=== PATIENT | female | born 1960 | race African-American/Black ===

== ENCOUNTER 2017-02-02 17:34 | Emergency (ER) | payer MEDICAID ==
[~2017-02-02] VITALS: Ht 170.2 cm; Wt 72.7 kg
[2017-02-02] MEDS ORDERED: METF500T4 PO (18:05)
[2017-02-02] MEDS ORDERED: LOSA50TA37 PO (18:05)
[2017-02-02] MEDS ORDERED: ZOLP5 PO (18:05)
[2017-02-02 18:07] LABS: GLUCOSE,POINT OF CARE 86 MG/DL (70-110)
[2017-02-02] MEDS ORDERED: HYDROCODONE/ACETAMINOPHEN 5-325 MG TABLET PO ONE (20:00)
[2017-02-02 21:25] VITALS: BP 132/89
== END 2017-02-02 22:10 | disposition home or self-care (01) ==
LOC: EMS 17:39
DX: M25.571 Pain in right ankle and joints of right foot (principal); M25.471 Effusion, right ankle; J45.909 Unspecified asthma, uncomplicated; E11.9 Type 2 diabetes mellitus without complications; I10 Essential (primary) hypertension; M19.90 Unspecified osteoarthritis, unspecified site
CPT/HCPCS: 29505; 82962; 99284

== ENCOUNTER 2017-04-20 05:54 | Emergency (ER) | payer MEDICAID ==
[~2017-04-20] VITALS: Ht 152.4 cm; Wt 95.5 kg
[~2017-04-20 05:54] MED LIST: LOSA50TA37 PO; METF500T4 PO; ZOLP5 PO
[2017-04-20] MEDS ORDERED: CLON.5 PO (06:00)
[2017-04-20] MEDS ORDERED: FOLI1 PO (06:00)
[2017-04-20 06:07] LABS: GLUCOSE,POINT OF CARE 127 MG/DL (70-110)
[2017-04-20 07:48] LABS: INFLUENZA TYPE B NEGATIVE FOR TYPE B (NEGATIVE)
[2017-04-20] MEDS ORDERED: BENZONATATE 100 MG CAPSULE PO ONE (09:00)
[2017-04-20] MEDS: IBUPROFEN 800 MG TABLET PO ONE ×2 (09:03→09:06)
[2017-04-20] MEDS ORDERED: ACETAMINOPHEN 500 MG TABLET PO ONE (09:15)
[2017-04-20] MEDS ORDERED: CIPROFLOXACIN HCL 0.2%/HYDROCORT 1% 10 ML OTIC SUSPENSION AD ONE (10:00)
[2017-04-20 10:15] VITALS: BP 105/67
== END 2017-04-20 10:27 | disposition home or self-care (01) ==
LOC: EMS 05:55
DX: J40 Bronchitis, not specified as acute or chronic (principal); R50.9 Fever, unspecified; J45.909 Unspecified asthma, uncomplicated; E11.9 Type 2 diabetes mellitus without complications; I10 Essential (primary) hypertension
CPT/HCPCS: 71020; 82962; 87804; 99285

== ENCOUNTER 2018-06-20 10:01 | Emergency (ER) | payer MEDICAID ==
[~2018-06-20] VITALS: Ht 157.5 cm; Wt 105.0 kg
[~2018-06-20 10:01] MED LIST changes: +CLON.5 PO; +FOLI1 PO; -LOSA50TA37 PO; +LOSA50TA64 PO; -METF500T4 PO
[2018-06-20] MEDS ORDERED: CITA10TA68 PO (10:12)
[2018-06-20] MEDS ORDERED: ADAL10SY2 IM (10:12)
[2018-06-20] MEDS ORDERED: DIAZ2 PO (10:12)
[2018-06-20] MEDS ORDERED: [UNRECOGNIZED DRUG - CODE] PO (10:12)
[2018-06-20 10:13] LABS: GLUCOSE,POINT OF CARE 98 MG/DL (70-110)
[2018-06-20 11:18] LABS: EOSINOPHILS % (AUTO) 1.1 % (1.0-6.0); HEMATOCRIT 37.8 % (36-46); HEMOGLOBIN 12.2 g/dL (12.0-16.0); LYMPHOCYTES # (AUTO) 2.1 K/uL (1.0-4.8); LYMPHOCYTES % (AUTO) 29.9 % (22.0-44.0); MEAN CORPUSCULAR HEMOGLOBIN 26.4 pg (26.0-34.0); MEAN CORPUSCULAR HGB CONC 32.4 G/dL (31.0-37.0); MEAN CORPUSCULAR VOLUME 82 fL (80-100); MONOCYTES % (AUTO) 13.8 % (2.0-9.0); NEUTROPHILS # (AUTO) 3.8 K/uL (1.8-7.7); NEUTROPHILS % (AUTO) 54.2 % (40.0-70.0); PLATELET COUNT (AUTO) 257 K/uL (150-450); RED BLOOD CELL COUNT(AUTO) 4.63 MIL/uL (4.00-5.20); RED CELL DISTRIBUTION WIDTH 14.8 % (11.5-14.5)
[2018-06-20 11:30] LABS: ANION GAP 9 mmol/L (8-16); CARBON DIOXIDE 29 mmol/L (22-29); CHLORIDE 104 mmol/L (98-107); CREATININE 0.93 mg/dL (0.60-1.30); GLOMERULAR FILTR. RATE CALC > 60 mL/min (>60); GLUCOSE,RANDOM 94 mg/dL (70-110); POTASSIUM 3.8 mmol/L (3.5-5.1); SODIUM SERUM 142 mmol/L (136-145); UREA NITROGEN, BLOOD 11 mg/dL (7-18)
[2018-06-20 11:33] LABS: ALANINE AMINOTRANSFERASE 16 U/L (12-78); ALBUMIN 3.5 g/dL (3.4-5.0); ALKALINE PHOSPHATASE 63 U/L (46-116); ASPARTATE AMINOTRANSFERASE 15 U/L (15-37); BILIRUBIN,TOTAL 0.5 mg/dL (0.1-1.0); LIPASE 95 U/L (73-393); TOTAL PROTEIN, SERUM 7.2 g/dL (6.4-8.2)
[2018-06-20 11:41] LABS: LACTIC ACID 0.6 mmol/L (0.4-2.0)
[2018-06-20 11:42] LABS: B-TYPE NATRIURETIC PEPTIDE 15 pg/mL (0-100)
[2018-06-20 12:03] LABS: INFLUENZA TYPE A NEGATIVE FOR TYPE A (NEGATIVE); INFLUENZA TYPE B NEGATIVE FOR TYPE B (NEGATIVE)
[2018-06-20 13:04] VITALS: BP 157/88
[2018-06-20] MEDS ORDERED: FLUC100T PO (13:36)
[2018-06-20] MEDS ORDERED: ACETAMINOPHEN 500 MG TABLET PO ONE (13:45)
== END 2018-06-20 13:51 | disposition home or self-care (01) ==
LOC: EMS 10:01
DX: J40 Bronchitis, not specified as acute or chronic (principal); J06.9 Acute upper respiratory infection, unspecified; M06.9 Rheumatoid arthritis, unspecified; E11.9 Type 2 diabetes mellitus without complications; I10 Essential (primary) hypertension; Z79.899 Other long term (current) drug therapy
CPT/HCPCS: 83605; 87040; 87804; 93005

== ENCOUNTER 2022-07-07 18:08 | Emergency (ER) | payer MEDICAID ==
[~2022-07-07] VITALS: Ht 144.8 cm; Wt 81.4 kg
[~2022-07-07 18:08] MED LIST changes: +ADAL10SY2 IM; +CITA10TA99 PO; +CLON-592 PO; -CLON.5 PO; +DIAZ2 PO; +FLUC100T68 PO; +FOLI-130 PO; -FOLI1 PO; +LOSA-382 PO; -LOSA50TA64 PO; +ZOLP-280 PO; -ZOLP5 PO
[2022-07-07] MEDS ORDERED: AMLO-257 PO (18:22)
[2022-07-07] MEDS ORDERED: SEMA0.258 IM (20:32)
[2022-07-07] MEDS ORDERED: SODIUM CHLORIDE 0.9% 1,000 ML IV ONE (21:00)
[2022-07-07 21:20] LABS: BASOPHILS % (AUTO) 1.4 % (0.0-2.0); EOSINOPHILS % (AUTO) 1.9 % (1.0-6.0); HEMATOCRIT 38.2 % (36-46); HEMOGLOBIN 12.1 g/dL (12.0-16.0); LYMPHOCYTES # (AUTO) 2.1 K/uL (1.0-4.8); LYMPHOCYTES % (AUTO) 33.7 % (22.0-44.0); MEAN CORPUSCULAR HEMOGLOBIN 27.5 pg (26.0-34.0); MEAN CORPUSCULAR HGB CONC 31.6 G/dL (31.0-37.0); MEAN CORPUSCULAR VOLUME 87 fL (80-100); MONOCYTES # (AUTO) 0.6 K/uL (0.1-1.0); MONOCYTES % (AUTO) 9.3 % (2.0-9.0); NEUTROPHILS # (AUTO) 3.3 K/uL (1.8-7.7); NEUTROPHILS % (AUTO) 53.7 % (40.0-70.0); PLATELET COUNT (AUTO) 260 K/uL (150-450); RED BLOOD CELL COUNT(AUTO) 4.38 MIL/uL (4.00-5.20); RED CELL DISTRIBUTION WIDTH 12.6 % (11.5-14.5)
[2022-07-07 21:29] LABS: ANION GAP 6 mmol/L (8-16); CALCIUM, TOTAL 9.2 mg/dL (8.8-10.5); CARBON DIOXIDE 31 mmol/L (22-29); CHLORIDE 105 mmol/L (98-107); CREATININE 1.05 mg/dL (0.60-1.30); GLOMERULAR FILTR. RATE CALC > 60 mL/min (>60); GLUCOSE,RANDOM 89 mg/dL (70-110); POTASSIUM 4.3 mmol/L (3.5-5.1); SODIUM SERUM 142 mmol/L (136-145); UREA NITROGEN, BLOOD 10 mg/dL (7-18)
[2022-07-07 21:34] LABS: ALANINE AMINOTRANSFERASE 18 U/L (12-78); ALBUMIN 3.8 g/dL (3.4-5.0); ALKALINE PHOSPHATASE 53 U/L (46-116); ASPARTATE AMINOTRANSFERASE 21 U/L (15-37); BILIRUBIN,TOTAL 0.3 mg/dL (0.1-1.0); LIPASE 89 U/L (73-393); TOTAL PROTEIN, SERUM 7.3 g/dL (6.4-8.2)
[2022-07-07 22:25] LABS: APPEARANCE,URINE CLEAR (CLEAR); BILIRUBIN,URINE NEGATIVE (NEGATIVE); GLUCOSE, URINE (UA) NEGATIVE (NEGATIVE); KETONES,URINE NEGATIVE (NEGATIVE); LEUKOCYTE ESTERASE ,URINE NEGATIVE (NEGATIVE); NITRATE,URINE NEGATIVE (NEGATIVE); OCCULT BLOOD,URINE NEGATIVE (NEGATIVE); PH,URINE 7.5 (5.0-8.0); PROTEIN,URINE NEGATIVE (NEGATIVE); SPECIFIC GRAVITIY, URINE 1.012 (1.003-1.030); UROBILINOGEN,URINE <=1.0 mg/dL (<=1.0)
[2022-07-07] MEDS ORDERED: FentaNYL CITRATE PF 100 MCG/2 ML VIAL IVP ONE (22:30)
[2022-07-07] MEDS ORDERED: FAMOTIDINE 10 MG/ML 2 ML VIAL IVP ONE (22:30)
[2022-07-07] MEDS ORDERED: KETOROLAC TROMETHAMINE 30 MG/ML VIAL IVP ONE (23:30)
[2022-07-07] MEDS ORDERED: KETOROLAC TROMETHAMINE 15 MG/ML VIAL IVP ONE (23:30)
[2022-07-08] MEDS ORDERED: FentaNYL CITRATE PF 100 MCG/2 ML VIAL IVP ONE
[2022-07-08 00:19] VITALS: BP 102/64
== END 2022-07-08 00:20 | disposition home or self-care (01) ==
LOC: EMS 18:21
DX: R10.10 Upper abdominal pain, unspecified (principal); J45.909 Unspecified asthma, uncomplicated; J44.9 Chronic obstructive pulmonary disease, unspecified; E11.9 Type 2 diabetes mellitus without complications; I10 Essential (primary) hypertension; Z98.890 Other specified postprocedural states
CPT/HCPCS: 99285; 74176; 96374; 71045; 96361; 96375; 80053; 81003; 83690; 84484; 85025; 36415; 93005; 96376; J3490; J3010

== ENCOUNTER 2022-09-11 08:01 | Emergency (ER) | payer MEDICAID ==
[~2022-09-11] VITALS: Ht 152.4 cm; Wt 78.2 kg
[~2022-09-11 08:01] MED LIST changes: -ADAL10SY2 IM; +AMLO-257 PO; -CITA10TA99 PO; -CLON-592 PO; -DIAZ2 PO; -FLUC100T68 PO; -LOSA-382 PO; +SEMA0.258 IM
[2022-09-11] MEDS ORDERED: UPAD30TA PO (08:06)
[2022-09-11] MEDS ORDERED: CEPH-558 PO (08:56)
[2022-09-11] MEDS ORDERED: BACITRACIN 0.9 GM PACKET OINTMENT TP ONE (09:00)
[2022-09-11] MEDS ORDERED: PERTUSS(ACELL),DIPH,TET VAC/PF 0.5 ML SYRINGE IM. ONE (09:00)
[2022-09-11 09:19] VITALS: BP 118/75
== END 2022-09-11 09:23 | disposition home or self-care (01) ==
LOC: EMS 08:06
DX: T23.201A Burn of second degree of right hand, unspecified site, initial encounter (principal); T31.0 Burns involving less than 10% of body surface; M19.90 Unspecified osteoarthritis, unspecified site; J45.909 Unspecified asthma, uncomplicated; J44.9 Chronic obstructive pulmonary disease, unspecified; E11.9 Type 2 diabetes mellitus without complications; I10 Essential (primary) hypertension; Z98.890 Other specified postprocedural states
CPT/HCPCS: 82962; 90471; 90715; 99283

== ENCOUNTER 2023-01-29 18:33 | Emergency (ER) | payer MEDICAID ==
[~2023-01-29] VITALS: Ht 152.4 cm; Wt 67.1 kg
[~2023-01-29 18:33] MED LIST changes: +CEPH-558 PO; +UPAD30TA PO
[2023-01-29] MEDS ORDERED: METH2.5T6 PO (18:43)
[2023-01-29] MEDS ORDERED: GABA-1181 PO (18:43)
[2023-01-29] MEDS ORDERED: OMEP20CA12 PO (18:43)
[2023-01-29] MEDS ORDERED: PRED5TAB2 PO (18:43)
[2023-01-29] MEDS ORDERED: CYAN-53 PO (18:43)
[2023-01-29] MEDS ORDERED: OS500 PO (18:43)
[2023-01-29] MEDS ORDERED: ATOR40TA71 PO (18:43)
[2023-01-29] MEDS ORDERED: CITA-108 PO (18:43)
[2023-01-29] MEDS ORDERED: MAGN250T9 PO (18:43)
[2023-01-29 19:30] VITALS: TEMP 97.3
[2023-01-29 21:30] VITALS: BP 129/88; PULSE 68; RESP 20
== END 2023-01-29 21:40 | disposition home or self-care (01) ==
LOC: EMS 18:53
DX: M79.675 Pain in left toe(s) (principal); M19.90 Unspecified osteoarthritis, unspecified site; J44.9 Chronic obstructive pulmonary disease, unspecified; E11.9 Type 2 diabetes mellitus without complications; I10 Essential (primary) hypertension; Z98.890 Other specified postprocedural states
CPT/HCPCS: 82962; 99283

== ENCOUNTER 2023-06-22 12:10 | Emergency (ER) | payer MEDICAID ==
[~2023-06-22] VITALS: Ht 152.4 cm; Wt 68.2 kg
[~2023-06-22 12:10] MED LIST changes: +ATOR40TA71 PO; -CEPH-558 PO; +CITA-108 PO; +CYAN-53 PO; +GABA-1181 PO; +MAGN250T9 PO; +METH2.5T6 PO; +OMEP20CA12 PO; +OS500 PO; +PRED5TAB2 PO
[2023-06-22 12:35] VITALS: BP 131/70; PULSE 80; RESP 16; TEMP 98.3
[2023-06-22] MEDS ORDERED: MONT-40 PO (12:43)
[2023-06-22] MEDS ORDERED: FURO20TA4 PO (12:43)
[2023-06-22] MEDS ORDERED: ZOLP12.555 PO (12:43)
[2023-06-22] MEDS ORDERED: SEMA1PEN3 SQ (12:43)
[2023-06-22] MEDS ORDERED: CELE-125 PO (12:43)
[2023-06-22] MEDS ORDERED: LATA2.5D14 OU (12:43)
[2023-06-22] MEDS ORDERED: AZEL137S8 NASAL (12:43)
[2023-06-22] MEDS ORDERED: AMLO5TAB66 PO (12:43)
[2023-06-22] MEDS ORDERED: DULO-114 PO (12:43)
[2023-06-22] MEDS ORDERED: ACET-2080 PO (14:49)
== END 2023-06-22 15:17 | disposition home or self-care (01) ==
LOC: EMS 12:12
DX: S63.633A Sprain of interphalangeal joint of left middle finger, initial encounter (principal); S63.635A Sprain of interphalangeal joint of left ring finger, initial encounter; M19.90 Unspecified osteoarthritis, unspecified site; J44.9 Chronic obstructive pulmonary disease, unspecified; E11.9 Type 2 diabetes mellitus without complications; I10 Essential (primary) hypertension; Z98.890 Other specified postprocedural states; W19.XXXA Unspecified fall, initial encounter; Y93.89 Activity, other specified; Y92.89 Other specified places as the place of occurrence of the external cause; Y99.8 Other external cause status
CPT/HCPCS: 82962; 99283

== ENCOUNTER 2023-11-05 19:45 | Emergency (ER) | payer MEDICAID ==
[~2023-11-05] VITALS: Ht 152.4 cm; Wt 72.7 kg
[~2023-11-05 19:45] MED LIST changes: +ACET-2080 PO; -AMLO-257 PO; +AMLO5TAB66 PO; +AZEL137S8 NASAL; +BACI28.410 TP; +CELE-125 PO; +DULO-114 PO; +FURO20TA4 PO; +HYDR-4062 PO; +LATA2.5D14 OU; +MONT-40 PO; -SEMA0.258 IM; +SEMA1PEN3 SQ; -ZOLP-280 PO; +ZOLP12.570 PO
[2023-11-05 19:57] VITALS: BP 131/58; PULSE 64; RESP 18; TEMP 98.1
[2023-11-05] MEDS: ACETAMINOPHEN 325 MG TABLET PO ONE (21:34)
[2023-11-05] MEDS: BACITRACIN 28 GM OINTMENT TP ONE (21:35)
== END 2023-11-05 21:44 | disposition home or self-care (01) ==
LOC: EMS 19:45
DX: T25.221A Burn of second degree of right foot, initial encounter (principal); J44.9 Chronic obstructive pulmonary disease, unspecified; E11.9 Type 2 diabetes mellitus without complications; I10 Essential (primary) hypertension; X10.2XXA Contact with fats and cooking oils, initial encounter; Y93.G3 Activity, cooking and baking; Y92.89 Other specified places as the place of occurrence of the external cause; Y99.8 Other external cause status
CPT/HCPCS: 16020; 82962; 99282; Z7502; Z7610

== ENCOUNTER 2025-02-11 15:57 | Emergency (ER) | payer MEDICAID ==
[~2025-02-11] VITALS: Ht 152.4 cm; Wt 72.7 kg
[~2025-02-11 15:57] MED LIST changes: -DULO-114 PO; +DULO30CA62 PO; -LATA2.5D14 OU; +LATA2.5D7 OU
[2025-02-11 16:04] VITALS: TEMP 98.3
[2025-02-11 17:00] VITALS: BP 128/68; PULSE 65; RESP 16; O2SAT 99
[2025-02-11] MEDS ORDERED: TRAM50TA5 PO (17:47)
== END 2025-02-11 19:10 | disposition home or self-care (01) ==
LOC: EMS 16:02
DX: S92.351A Displaced fracture of fifth metatarsal bone, right foot, initial encounter for closed fracture (principal); E11.9 Type 2 diabetes mellitus without complications; I10 Essential (primary) hypertension; J44.89 Other specified chronic obstructive pulmonary disease; M19.90 Unspecified osteoarthritis, unspecified site; Z79.52 Long term (current) use of systemic steroids; Z79.631 Long term (current) use of antimetabolite agent; Z79.85 Long-term (current) use of injectable non-insulin antidiabetic drugs; Z79.899 Other long term (current) drug therapy; W22.03XA Walked into furniture, initial encounter; Y93.89 Activity, other specified; Y92.89 Other specified places as the place of occurrence of the external cause; Y99.8 Other external cause status
CPT/HCPCS: 82962; 99283